=== PATIENT | female | born 1970 | race American Indian/Alaskan Native ===

== ENCOUNTER 2017-09-13 07:01 | Outpatient (CLI) | payer BC ==
--- NOTE | 2017-09-13 14:59 | Mammography Report ---
BILATERAL DIGITAL SCREENING MAMMOGRAM with CAD and BILATERAL DIGITAL BREAST TOMOSYNTHESIS (DBT) : 09/13/17 CLINICAL: Routine screening. COMPARISON:03/26/15 and 03/11/14 FINDINGS: The breasts are heterogeneously dense, which may obscure small masses. Bilateral partially circumscribed asymmetries identified on tomosynthesis images require additional imaging. No architectural distortion or suspicious calcifications. IMPRESSION: Bilateral asymmetries requiring additional workup. BI-RADS CATEGORY: 0 - - Needs Additional Imaging RECOMMENDATION: Recall for bilateral global breast ultrasound. COMMENT: Patient follow-up letters are generated by our [employer] application.
== END 2017-09-13 07:02 | disposition home or self-care (01) ==
LOC: MAMMO 07:01
PROVIDERS: ATTEND Obstetrics & Gynecology Gynecology
DX: Z12.31 Encounter for screening mammogram for malignant neoplasm of breast (principal)
CPT/HCPCS: 77063; 77067

== ENCOUNTER 2017-11-23 08:07 | Outpatient (CLI) | payer BC ==
--- NOTE | 2017-11-23 09:37 | Ultrasound Report ---
Bilateral global ultrasound: Examination performed based on bilateral asymmetries identified on recent tomomammogram in August 2017. Images of the right breast demonstrates 5 echolucent circumscribed masses some of which having enhanced distal echoes. One of the almost completely anechoic masses is somewhat elongated and dumbbell shaped measuring 7.5 mm having a few scattered internal echoes but otherwise unremarkable. This is located in the 5:00 location. The other masses were located in the 11:00, 12:00, 1:00, 2:00, and 5:00 locations. The largest of these is at 1:00 measuring 7.4 mm. To echolucent masses are identified in the left breast at 1:00 measuring 3 cm and 7 cm from the nipple. The larger of the 2 measures 6.3 mm. No solid masses were identified in the breast. A single lymph node is identified in the left axilla measuring 14 mm. It is unclear as to the correlation with any of these lesions with the mammographic findings. Impression: Multiple bilateral cysts. No solid or suspicious masses. Review of recent tomomammogram also identified is generally benign characteristics of the nodular asymmetries. Recommendation: Repeat tomomammogram in 6 months to confirm stability of the bilateral nodules. BI-RADS CATEGORY: 3 = Probably benign ACR BI-RADS MAMMOGRAPHIC CODES: 0 = Needs additional imaging evaluation; 1 = Negative; 2 = Benign; 3 = Probably benign; 4 = Suspicious; 5 = Malignant; 6 = Known biopsy-proven malignancy COMMENT: 1. Dense breast tissue, i.e., adenosis, fibrocystic changes, etc., may obscure an underlying neoplasm. 2. Approximately 10% of cancers are not detected with mammography. 3. A negative mammography report should not delay biopsy if a clinically suspicious mass is present.
== END 2017-11-23 08:08 | disposition home or self-care (01) ==
LOC: US 08:07
PROVIDERS: ATTEND Obstetrics & Gynecology Gynecology
DX: N60.01 Solitary cyst of right breast (principal); N60.02 Solitary cyst of left breast; R92.8 Other abnormal and inconclusive findings on diagnostic imaging of breast